=== PATIENT | male | born 1985 | race Caucasian/White ===

== ENCOUNTER 2017-05-28 18:51 | Emergency (ER) | payer BC, SELFPAY ==
[2017-05-28] MEDS ORDERED: Lidocaine 1% 20 ML MDV ONE (19:13)
[2017-05-28] MEDS ORDERED: Bacitracin Zinc 1 Packet ONE (19:41)
== END 2017-05-28 19:55 ==
LOC: NAV ERS 18:51
DX: S01.511A Laceration without foreign body of lip, initial encounter (principal); S01.01XA Laceration without foreign body of scalp, initial encounter; S09.8XXA Other specified injuries of head, initial encounter; S60.512A Abrasion of left hand, initial encounter; S60.511A Abrasion of right hand, initial encounter; Y04.0XXA Assault by unarmed brawl or fight, initial encounter
CPT/HCPCS: 12001; 40650; J2001